=== PATIENT | male | born 1960 | race Caucasian/White ===

== ENCOUNTER 2022-10-14 07:48 | Emergency (ER) | payer OTHER, MEDICAID ==
[~2022-10-14 07:48] MED LIST: HYDROCODONE BIT1 T11 PO
[2022-10-14] MEDS ORDERED: TRAMADOL HCL50 MG PO (08:38)
== END 2022-10-14 08:38 | disposition home or self-care (01) ==
LOC: ED 07:48
DX: M25.511 Pain in right shoulder (principal)